=== PATIENT | male | born 1965 | race Hispanic/Latino ===

== ENCOUNTER 2021-02-11 10:40 | Emergency (ER) | payer SELFPAY ==
[~2021-02-11] VITALS: Ht 175.3 cm; Wt 84.8 kg
[2021-02-11] MEDS ORDERED: DOXYCYCLINE HY100 MG PO (12:32)
== END 2021-02-11 12:59 | disposition home or self-care (01) ==
LOC: ED 10:40
DX: S91.002A Unspecified open wound, left ankle, initial encounter (principal); X58.XXXA Exposure to other specified factors, initial encounter
CPT/HCPCS: 73630; 80053; 83605; 85025; 85651; 90471; 90714; 99283-25

== ENCOUNTER 2021-11-16 19:28 | Emergency (ER) | payer OTHER ==
[~2021-11-16] VITALS: Ht 175.3 cm; Wt 91.0 kg
[~2021-11-16 19:28] MED LIST: DOXYCYCLINE HY100 MG PO
--- OUTSIDE RECORDS SUMMARY | 2021-11-16 19:36 | XMS ---
PreManage Notification: JOSHUA SMITH Security Embedded Engineer Events No recent Security Events currently on file CRITERIA MET - Group Notification CARE PROVIDERS There are no care providers on record at this time. June has no Care Guidelines for this patient. [facility] VISIT COUNT (12 MO.) 3 [facility] [place] TOTAL 3 NOTE: Visits indicate total known visits. ED/UCC VISIT TRACKING (12 MO.) 11/16/2021 19:29 [facility] [place] TYPE: Emergency COMPLAINT: - RT ARM NUMBNESS 02/15/2021 14:29 [facility] [place] TYPE: Emergency COMPLAINT: - RE-CHECK FOOT 02/11/2021 10:42 [facility] [place] TYPE: Emergency COMPLAINT: - L FOOT WOUND DIAGNOSES: - Exposure to other specified factors, initial encounter - Unspecified open wound, left ankle, initial encounter INPATIENT VISIT TRACKING (12 MO.) No inpatient visits to display in this time frame [email or web address]
[2021-11-16] MEDS ORDERED: NEURONTIN100 MG PO (20:51)
== END 2021-11-16 21:20 | disposition home or self-care (01) ==
LOC: ED 19:28
DX: M50.31 Other cervical disc degeneration, high cervical region (principal); M50.322 Other cervical disc degeneration at C5-C6 level; G56.01 Carpal tunnel syndrome, right upper limb
CPT/HCPCS: 72040; 99283-25